=== PATIENT | male | born 1955 | race African-American/Black ===

== ENCOUNTER 2019-06-29 07:40 | Day surgery (SDC) | payer OTHER ==
[~2019-06-29] VITALS: Ht 175.3 cm; Wt 78.0 kg
[2019-06-29 08:01] VITALS: BP 118/74
[2019-06-29 10:39] VITALS: BP 130/85
== END 2019-06-29 11:10 | disposition home or self-care (01) ==
LOC: DS 07:40 → GI 09:00 → OR 09:00 → DS 11:10
DX: K21.9 Gastro-esophageal reflux disease without esophagitis (principal); F17.210 Nicotine dependence, cigarettes, uncomplicated; Z79.899 Other long term (current) drug therapy
CPT/HCPCS: 43235; J1200; J1610; J2250; J2310; J3010; J3490